=== PATIENT | female | born 1975 | race American Indian/Alaskan Native ===

== ENCOUNTER 2020-02-06 05:54 | Emergency (ER) | payer MEDICAID, SELFPAY ==
[2020-02-06] MEDS ORDERED: Aspirin 81 MG Tab.Chew PO ONE (06:07)
--- NOTE | 2020-02-06 06:07 | EDM.PDOC ---
<Martin Crawfordcedario Monte - Last Filed: 02/06/20 06:45> ED HPI GENERAL MEDICAL PROBLEM - General Stated Complaint: POSSIBLE HEART ATTACK, NITRO PILLS ALL GONE Time Seen by Provider: 02/06/20 06:22 Source of Information: Reports: Patient History Limitations: Reports: No Limitations - History of Present Illness INITIAL COMMENTS - FREE TEXT/NARRATIVE: ED with c/o heart racing. Stated similar 3 months ago and had heart attack then. Admits meth last evening. Denies chest pain, No SOB. Smoker. No nausea or vomiting. Denied other drug use. Prior hx IV meth, "just smoked it " last night. - Related Data Allergies Allergy/AdvReac Type Severity Reaction Status Date / Time No Known Allergies Allergy Verified 02/06/20 06:24 Home Meds: Home Meds . [Unable to Verify Home Med List] 04/12/16 [History] Past Medical History Cardiovascular History: Reports: Hypertension Psychiatric History: Reports: Anxiety, Depression Social & Family History - Caffeine Use Caffeine Use: Reports: None ED ROS GENERAL - Review of Systems Review Of Systems: Comprehensive ROS is negative, except as noted in HPI. ED EXAM, GENERAL - Physical Exam Exam: See Below Exam Limited By: No Limitations General Appearance: Alert, Anxious, Mild Distress, Obese Eye Exam: Bilateral Eye: EOMI Ears: Normal External Exam, Hearing Grossly Normal Nose: Normal Inspection Throat/Mouth: Normal Inspection Head: Atraumatic, Normocephalic Neck: Normal Inspection Respiratory/Chest: No Respiratory Distress, Lungs Clear Cardiovascular: Tachycardia GI/Abdominal: Normal Bowel Sounds, Soft, Non-Tender Extremities: Normal Inspection Neurological: Alert, Oriented, CN II-XII Intact, Normal Cognition Psychiatric: Anxious Skin Exam: Warm, Dry, Intact, Normal Color Course - Re-Assessments/Exams Free Text/Narrative Re-Assessment/Exam: reports sx improved since arrival. Departure - Departure Disposition: Home, Self-Care 01 Clinical Impression: Methamphetamine abuse, Rapid palpitations Instructions: Nonspecific Chest Pain, Adult, [id number], Stimulant Use Disorder-Methamphetamines, Palpitations, [id number] Forms: ED Department Discharge Additional Instructions: Refrain from using meth Follow-up with your price changer Seek counseling for treatment Return to the ER with any worsening of problems <Cassandra Brice - Last Filed: 02/06/20 07:19> Course - Vital Signs Last Recorded V/S: Last Vital Signs Temp 97.5 F 02/06/20 06:21 Pulse 98 02/06/20 06:21 Resp 18 02/06/20 06:21 BP 150/93 H 02/06/20 06:21 Pulse Ox 100 02/06/20 06:21 - Orders/Labs/Meds Orders: Active Orders 24 hr Category Date Time Status EKG Documentation Completion [RC] STAT Care 02/06/20 05:57 Active CBC WITH AUTO DIFF [HEME] Stat Lab 02/06/20 06:11 Results MANUAL DIFFERENTIAL QA/NC [HEME] Stat Lab 02/06/20 06:11 Results Labs: Laboratory Tests 02/06/20 02/06/20 02/06/20 Range/Units 06:11 06:11 06:11 WBC 7.0 (5.0-10.0) 10^3/uL RBC 4.34 (4.2-5.4) 10^6/uL Hgb 12.9 (12.0-16.0) g/dL Hct 38.6 (37.0-47.0) % MCV 88.9 (80-100) fL MCH 29.7 (27.0-34.0) pg MCHC 33.4 (33.0-35.0) g/dL Plt Count 266 D (150-450) 10^3/uL Neut % (Auto) 27.0 L (42.2-75.2) % Lymph % (Auto) 62.9 H (20.5-50.1) % [place] % (Auto) 8.1 H (2-8) % Eos % (Auto) 1.7 (1.0-3.0) % Baso % (Auto) 0.3 (0.0-1.0) % Add Manual Diff Yes PT 9.7 (9.0-12.0) SEC INR 1.0 (0.9-1.2) Sodium 139 (136-145) mmol/L Potassium 3.5 (3.5-5.1) mmol/L Chloride 102 (98-107) mmol/L Carbon Dioxide 30 (21-32) mmol/L Anion Gap 10.5 (7-13) mEq/L BUN 16 (7-18) mg/dL Creatinine 0.83 (0.55-1.02) mg/dL Est Cr Clr Drug Dosing 71.55 mL/min Estimated GFR (MDRD) > 60 BUN/Creatinine Ratio 19.3 (No establ ref range) Glucose 109 H (74-99) mg/dL Calcium 8.7 (8.5-10.1) mg/dL Total Bilirubin 0.4 (0.2-1.0) mg/dL AST 46 H (15-37) U/L ALT 71 H (14-59) U/L Alkaline Phosphatase 91 (46-116) U/L Troponin I < 0.017 (0.000-0.056) ng/mL B-Natriuretic Peptide 56 (0-100) pg/ml Total Protein 7.8 (6.4-8.2) g/dL Albumin 3.6 (3.4-5.0) g/dL Globulin 4.2 Albumin/Globulin Ratio 0.9 Amylase 35 (25-115) U/L Lipase 83 (73-393) U/L Urine Color (YELLOW) Urine Appearance (CLEAR) Urine pH (5.0-9.0) Ur Specific [place] (1.005-1.030) Urine Protein (NEGATIVE) Urine Glucose (UA) (NEGATIVE) Urine Ketones (NEGATIVE) Urine Occult Blood (NEGATIVE) Urine Nitrite (NEGATIVE) Urine Bilirubin (NEGATIVE) Urine Urobilinogen (0.2-1.0) mg/dL Ur Leukocyte Esterase (NEGATIVE) Urine Opiates Screen (NEGATIVE) Ur Oxycodone Screen (NEGATIVE) Urine Methadone Screen (NEGATIVE) Ur Barbiturates Screen (NEGATIVE) U Tricyclic Antidepress (NEGATIVE) Ur Phencyclidine Scrn (NEGATIVE) Ur Amphetamine Screen (NEGATIVE) U Methamphetamines Scrn (NEGATIVE) Urine MDMA Screen (NEGATIVE) U Benzodiazepines Scrn (NEGATIVE) Urine Cocaine Screen (NEGATIVE) U Marijuana (THC) Screen (NEGATIVE) 02/06/20 02/06/20 Range/Units 06:16 06:16 WBC (5.0-10.0) 10^3/uL RBC (4.2-5.4) 10^6/uL Hgb (12.0-16.0) g/dL Hct (37.0-47.0) % MCV (80-100) fL MCH (27.0-34.0) pg MCHC (33.0-35.0) g/dL Plt Count (150-450) 10^3/uL Neut % (Auto) (42.2-75.2) % Lymph % (Auto) (20.5-50.1) % [place] % (Auto) (2-8) % Eos % (Auto) (1.0-3.0) % Baso % (Auto) (0.0-1.0) % Add Manual Diff PT (9.0-12.0) SEC INR (0.9-1.2) Sodium (136-145) mmol/L Potassium (3.5-5.1) mmol/L Chloride (98-107) mmol/L Carbon Dioxide (21-32) mmol/L Anion Gap (7-13) mEq/L BUN (7-18) mg/dL Creatinine (0.55-1.02) mg/dL Est Cr Clr Drug Dosing mL/min Estimated GFR (MDRD) BUN/Creatinine Ratio (No establ ref range) Glucose (74-99) mg/dL Calcium (8.5-10.1) mg/dL Total Bilirubin (0.2-1.0) mg/dL AST (15-37) U/L ALT (14-59) U/L Alkaline Phosphatase (46-116) U/L Troponin I (0.000-0.056) ng/mL B-Natriuretic Peptide (0-100) pg/ml Total Protein (6.4-8.2) g/dL Albumin (3.4-5.0) g/dL Globulin Albumin/Globulin Ratio Amylase (25-115) U/L Lipase (73-393) U/L Urine Color Yellow (YELLOW) Urine Appearance Clear (CLEAR) Urine pH 7.5 (5.0-9.0) Ur Specific [place] 1.015 (1.005-1.030) Urine Protein Negative (NEGATIVE) Urine Glucose (UA) Negative (NEGATIVE) Urine Ketones Negative (NEGATIVE) Urine Occult Blood Negative (NEGATIVE) Urine Nitrite Negative (NEGATIVE) Urine Bilirubin Negative (NEGATIVE) Urine Urobilinogen 0.2 (0.2-1.0) mg/dL Ur Leukocyte Esterase Negative (NEGATIVE) Urine Opiates Screen Negative (NEGATIVE) Ur Oxycodone Screen Negative (NEGATIVE) Urine Methadone Screen Negative (NEGATIVE) Ur Barbiturates Screen Negative (NEGATIVE) U Tricyclic Antidepress Negative (NEGATIVE) Ur Phencyclidine Scrn Negative (NEGATIVE) Ur Amphetamine Screen Negative (NEGATIVE) U Methamphetamines Scrn Positive H (NEGATIVE) Urine MDMA Screen Negative (NEGATIVE) U Benzodiazepines Scrn Negative (NEGATIVE) Urine Cocaine Screen Negative (NEGATIVE) U Marijuana (THC) Screen Negative (NEGATIVE) Meds: Medications Discontinued Medications Generic Name Dose Route Start Last Admin Trade Name Freq PRN Reason Stop Dose Admin Aspirin 324 mg 02/06/20 06:07 02/06/20 06:15 Aspirin PO 02/06/20 06:08 324 mg ONETIME ONE Administration Lorazepam 1 mg 02/06/20 06:30 02/06/20 06:46 Ativan IVPUSH 02/06/20 06:31 1 mg ONETIME ONE Administration - Re-Assessments/Exams Free Text/Narrative Re-Assessment/Exam: 02/06/20 07:16 Discussed diagnostic findings with patient. Advised to follow up with her price changer, seek counseling/treatment, and refrain from using meth. Departure - Departure Time of Disposition: 07:19 Reason for Transfer *Q: Other Condition: Fair Sepsis Event Note (ED) - Focused Exam Vital Signs: Vital Signs Temp Pulse Resp BP Pulse Ox 02/06/20 06:21 97.5 F 98 18 150/93 H 100
[2020-02-06 06:24] VITALS: BP 150/93; PULSE 98
[2020-02-06] MEDS ORDERED: LORazepam 2 MG/ML SDV IVPUSH ONE (06:30)
--- NOTE | 2020-02-06 06:36 | CR ---
PROCEDURE INFORMATION: Exam: XR Chest, 1 View Exam date and time: 02/06/2020 6:26 AM Age: 44 years old Clinical indication: Other: Heart racing TECHNIQUE: Imaging protocol: XR of the chest Views: 1 view. COMPARISON: No relevant prior studies available. FINDINGS: Lungs: Unremarkable. No consolidation. Pleural space: Unremarkable. No pleural effusion. No pneumothorax. Heart/Mediastinum: Unremarkable. No cardiomegaly. Bones/joints: Unremarkable. IMPRESSION: No evidence for acute pulmonary disease.
[2020-02-06 06:40] LABS: ANION GAP 10.5 mEq/L (7-13); CHLORIDE,CL 102 mmol/L (98-107); SODIUM,NA 139 mmol/L (136-145)
== END 2020-02-06 07:36 | disposition home or self-care (01) ==
LOC: DL.ED 05:54
DX: R00.2 Palpitations (principal); F15.10 Other stimulant abuse, uncomplicated; I10 Essential (primary) hypertension
CPT/HCPCS: 36415; 71045; 80053; 80305; 81003; 82150; 83690; 83880; 84484; 85025; 85610; 93005; 96374; 99285; A9270; J2060; 99283

== ENCOUNTER 2020-02-06 08:20 | Emergency (ER) | payer SELFPAY ==
[2020-02-06 08:33] VITALS: BP 151/98; PULSE 105
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
== END 2020-02-06 10:24 | disposition home or self-care (01) ==
LOC: DL.ED 08:20
DX: M54.16 Radiculopathy, lumbar region (principal); M79.675 Pain in left toe(s); I10 Essential (primary) hypertension; F17.210 Nicotine dependence, cigarettes, uncomplicated
CPT/HCPCS: 72100; 72220; 73630-LT; 99284